=== PATIENT | female | born 1995 | race Caucasian/White ===

== ENCOUNTER 2022-12-07 17:47 | Emergency (ER) | payer MEDICARE | END 2022-12-07 18:30 | disposition home or self-care (01) | LOC: VM.ED 17:47 | DX: S60.222A Contusion of left hand, initial encounter (principal); Z88.2 Allergy status to sulfonamides; W17.89XA Other fall from one level to another, initial encounter | CPT/HCPCS: 99283 ==

== ENCOUNTER 2023-12-03 22:24 | Emergency (ER) | payer MEDICAID, MEDICARE, OTHER ==
[2023-12-03] MEDS ORDERED: Lidocaine 1% 10 ML MDV ONE (22:42)
[2023-12-03] MEDS: Lidocaine 1% 10 ML MDV INJECT ONE (22:42)
[2023-12-03] MEDS: Cephalexin 500 MG Cap PO ONE (23:43)
[2023-12-04] MEDS: Diphtheria,Pertussis(Acell),Tetanus Vaccine 0.5 ML Syringe IM ONE (00:53)
== END 2023-12-04 00:50 | disposition home or self-care (01) ==
LOC: VM.ED 22:24
DX: S91.115A Laceration without foreign body of left lesser toe(s) without damage to nail, initial encounter (principal); Z88.2 Allergy status to sulfonamides; Z79.899 Other long term (current) drug therapy; Z23 Encounter for immunization; W18.41XA Slipping, tripping and stumbling without falling due to stepping on object, initial encounter
CPT/HCPCS: 12002; 73620; 90471; 90715; 99283; A9270; J3490